=== PATIENT | female | born 1950 | race Caucasian/White ===

== ENCOUNTER → 2016-09-30 | Outpatient (CLI) | payer BC ==
[~2016-09-30] MED LIST: ASPEC81 PO; DTR5 PO; MULT-506 PO; PSYL55.43 PO; WARF2TAB PO
== END | disposition home or self-care (01) ==
LOC: C.RDSM 11:20
PROVIDERS: ATTEND Physical Medicine & Rehabilitation Sports Medicine
DX: M16.0 Bilateral primary osteoarthritis of hip (principal); Z96.641 Presence of right artificial hip joint

== ENCOUNTER → 2017-03-28 | Outpatient (CLI) | payer BC | END | disposition home or self-care (01) | LOC: C.RDSM 09:20 | PROVIDERS: ATTEND Physical Medicine & Rehabilitation Sports Medicine | DX: M16.0 Bilateral primary osteoarthritis of hip (principal); Z96.641 Presence of right artificial hip joint ==

== ENCOUNTER → 2017-08-21 | Outpatient (CLI) | payer BC | END | disposition home or self-care (01) | LOC: C.MAMM 09:58 | PROVIDERS: ATTEND Family Medicine | DX: Z00.00 Encounter for general adult medical examination without abnormal findings (principal); Z78.0 Asymptomatic menopausal state; M85.832 Other specified disorders of bone density and structure, left forearm ==

== ENCOUNTER 2019-01-07 23:18 | Observation (INO) ==
[2019-01-07] MEDS ORDERED: DEXAMETHASONE **PF** INJ 10 MG/ML VIAL IV ONE (23:32)
[2019-01-07] MEDS ORDERED: SODIUM CHLORIDE 0.9% 1000ML 1,000 ML IV SCH (23:45)
[2019-01-07 23:57] LABS: Basophils # (auto) 0.03 K/uL (0-0.2); Basophils % (auto) 0.3 %; Eosinophils # (auto) 0.06 K/uL (0-0.5); Eosinophils % (auto) 0.5 %; Hematocrit (blood only) 41.1 % (37-47); Hemoglobin 13.9 g/dL (12.0-16.0); Immature Granulocytes # (auto) 0.02 K/uL (0.00-0.02); Immature Granulocytes % (auto) 0.2 %; Lymphocytes # (auto) 1.18 K/uL (1.2-3.4); Lymphocytes % (auto) 10.8 %; Mean Corpuscular Hemoglobin 29.8 pg (25-34); Mean Corpuscular Hgb Conc 33.8 g/dL (32-36); Mean Corpuscular Volume 88.2 fL (80-100); Mean Platelet Volume 10.4 fL (7.4-10.4); Monocytes # (auto) 0.86 K/uL (0.11-0.59); Monocytes % (auto) 7.8 %; Neutrophils # (auto) 8.82 K/uL (1.4-6.5); Neutrophils % (auto) 80.4 %; Platelet Count 217 K/uL (130-400); RDW Coefficient of Variation 12.3 % (11.5-14.5); RDW Standard Deviation 39.1 fL (36.4-46.3); Red Blood Count 4.66 M/uL (4.2-5.4); White Blood Count 10.97 K/uL (4.8-10.8)
[2019-01-08 00:14] LABS: Albumin Level 3.3 gm/dl (3.4-5.0); BUN Creatinine Ratio 13.7 (10-20); Creatinine Clr Calc Pharmacy 46.2 ml/min; Est GFR (Non-African American) 50.1; Magnesium 1.8 mg/dl (1.8-2.4)
[2019-01-08 00:25] LABS: Albumin Globulin Ratio 0.7 (0.9-2); Bilirubin,Total 0.8 mg/dl (0.2-1); Globulin 4.6 gm/dl (2.5-4.0); Thyroid Stimulating Hormone 1.91 uIu/ml (0.300-4.500); Total Protein 7.9 gm/dl (6.4-8.2)
[2019-01-08] MEDS ORDERED: HydrALAZINE HCL 20 MG/ML VIAL IV STA (02:11)
--- NOTE | 2019-01-08 02:27 | History & Physical Report ---
Date of Service January 08, 2019 Assessment & Plan (1) Sialadenitis: Ms. Dumont is a 68 year old female with a past medical history of overactive bladder who presents to the emergency department due to a 3-day history of right-sided neck swelling. ED course: 10 mg IV dexamethasone, 10 mg IV hydralazine, 600 mg IV clindamycin, 1 L normal saline -Admit to med/surg with telemetry monitoring -CT of the neck shows " enlarged right submandibular gland with adjacent fat stranding in the submandibular space - sialadenitis secondary to 2 separate obstructing calculi in the right Christopher's duct" -We will consult ENT, already aware -No signs or symptoms of respiratory distress at this time, continue to monitor -Cefuroxime 1.5 g IV every 8 hours and 500 mg IV Flagyl every 8 hours ordered to cover for superimposed infection -LR at 125 mls/hr x1 bag for maintenance fluids given poor oral intake -IV tylenol and toradol ordered prn for pain Hypertension -Patient does not have a history of HTN, but her blood pressure was significantly elevated in the emergency department - to 211/108 -continue to monitor, s/p 10mg IV hydralazine -Recommend outpatient follow-up for BP recheck Overactive bladder -Hold home oxybutynin, as anticholinergics can predispose to salivary gland stones CODE STATUS: Full DVT prophylaxis: SCDs Disposition: Admit to med/surg with telemetry monitoring (2) Hypertension: (3) Overactive bladder: History of Present Illness Chief Complaint: Neck Swelling Primary Care Provider: Tj Izaguirre Ms. Dumont is a 68 year old female with a past medical history of overactive bladder who presents to the emergency department due to a 3-day history of right-sided neck swelling. The patient states that this began on after she woke up from a nap 3 days ago. She reports that both the swelling and pain have progressively worsened over the past 3 days. She saw her primary care provider today, who prescribed her a course of Levaquin. She has been using both hot and cold compresses to treat the swelling, as well as ibuprofen. She reports that the reason she decided to come in today it was because she had difficulty swallowing water with her ibuprofen. She denies any trouble breathing, fever, chills, nausea, or vomiting. She states that she has had a similar episode before, in the spring. She states that it cleared up by itself - she did not seek medical attention, or take antibiotics for this. Past medical history: Overactive bladder Past surgical history: Bilateral hip replacement, kidney donation Medications: Oxybutynin, Metamucil Allergies: Penicillins, sulfa Social history: , non-smoker, no recreational drugs, 1 glass of wine per week Allergies Allergy/AdvReac Type Severity Reaction Status Date / Time Penicillins Allergy Intermediate hives Verified 01/08/19 00:14 Sulfa (Sulfonamide Allergy Intermediate HIVES Verified 01/08/19 00:14 Antibiotics) nickel Allergy Mild RASH Verified 01/08/19 00:14 Home Medications Home Medications Medication Instructions Recorded Confirmed Type [id number]-[id number]-[id number] 1 tab PO DAILY 01/08/19 01/08/19 History [Glucosamine-Chondroitin 3X] ibuprofen [Advil] 400 mg PO DIRECTED PRN 01/08/19 01/08/19 History levofloxacin 500 mg PO DAILY 01/08/19 01/08/19 History multivitamin 1 tab PO DAILY 01/08/19 01/08/19 History oxybutynin chloride [Ditropan XL] 10 mg PO QPM 01/08/19 01/08/19 History psyllium husk (aspartame) 1 packet PO BID 01/08/19 01/08/19 History [Metamucil Fiber Singles] Past Med/Surg History Medical History DJD (degenerative joint disease) of hip Overactive bladder Surgical History H/O partial nephrectomy Family History Other No significant family history Social History Preferred Language: Bulgarian Communication Ability: Effective Technical Mgr Required: No Beliefs That Will Affect Care: None Current Living Situation: Alone Other Information That Helps Us Care for You: No Feels Safe at Home: Yes Safety Concerns: Feels Safe At This Time Smoking Status: Never smoker Hx Alcohol Use: Yes Alcohol type: wine Hx Substance Use: No Review of Systems Constitutional: no fever, no chills and no fatigue Respiratory: no cough, no dyspnea and no wheezing Cardiovascular: no chest pain, no palpitations, no syncope, no edema and no calf pain Gastrointestinal: no abdominal pain, no nausea, no vomiting and no change in bowel habits Genitourinary: no dysuria Integumentary: no rash Physical Exam Constitutional: WD/WN, vitals as above cooperative and comfortable Eyes: PERRL, conjunctivae normal, anicteric sclerae ENMT: external ear and nose normal, oropharynx normal Right-sided submandibular swelling, extending to the anterior aspect of the neck. This is tender to palpation, however is not erythematous or warm to touch. Respiratory: normal respiratory effort, lungs clear to auscultation Cardiovascular: RRR, no murmur, no edema Gastrointestinal (Abdomen): normal bowel sounds, soft, nontender, no hepatosplenomegaly Skin: no rashes, warm and dry Neurologic: 5/5 power in upper and lower extremities, sensation intact Psychiatric: A+Ox3, euthymic affect Results & Data Vital Signs (Past 12 Hours) Vital Signs Temp Pulse Pulse Resp BP BP Pulse Ox 01/08/19 01:48 80 20 211/108 H 94 01/08/19 01:46 81 20 203/107 H 93 01/08/19 01:30 76 23 179/100 H 93 01/08/19 01:05 75 14 180/91 H 92 01/08/19 01:00 81 13 180/91 H 93 01/08/19 00:39 169/79 H 01/08/19 00:30 76 13 94 01/08/19 00:12 84 19 172/114 H 93 01/08/19 00:09 93 H 17 93 01/08/19 00:06 86 19 172/114 H 94 01/07/19 23:21 36.9 C 100 H 20 192/93 H 95 Code Status & VTE Plan VTE Prophylaxis Plan VTE Prophylaxis will be ordered: Yes Supervising Physician Co-Signing Physician Notes Patient was seen and examined by me personally. I reviewed the chart, the order s and discussed the case in detail with Dr. America Giron MD. I read this H&P and agree with its contents to entirety. PG Care Time/CCT Total # of Minutes Spent Total Time Spent with Patient: Total time spent is greater than 50% in coordination of care (as documented) at patient's floor/unit and/or counseling patient: Resident Activity Tracking Resident Involvement: Resident Care Provided Care Provided: Adult Hospital Medicine (1) Hypertension Hypertension type: unspecified Qualified Code(s): I10 - Essential (primary) hypertension
[2019-01-08] MEDS ORDERED: CLINDAMYCIN 600 MG in DEXTROSE 5% 50 ML IV ONE (02:38)
[2019-01-08] MEDS ORDERED: LACTATED RINGER'S 1,000 ML IV SCH (03:32)
[2019-01-08] MEDS ORDERED: ACETAMINOPHEN 1000 MG/100 ML IV IV PRN (03:32)
[2019-01-08] MEDS ORDERED: KETOROLAC TROMETHAMINE 15 MG/ML VIAL IV PRN (03:32)
[2019-01-08] MEDS ORDERED: ONDANSETRON INJ 2 MG/ML 2 ML VIAL IV PRN (03:32)
--- NOTE | 2019-01-08 03:35 | Emergency Department Note ---
Entered by Rm Hyde acting as a scribe for History of Present Illness General Chief complaint: Throat Pain Stated complaint: SWOLLEN LYMPH NOPE IN NECK Source: patient History of Present Illness Onset (ago): day(s) (yesterday) Location: neck Pain Consistency: + constant Maximum Pain Intensity: 5 Exacerbated By: + other (pain) Associated symptoms: + other (Positive for swollen neck, tongue swelling, and difficulty swallowing. Negative for SOB and fever.) The patient is a 68 year old female who presents to the emergency department with complaints of constant neck pain beginning yesterday. The patient states that the right side of her neck is swollen due to a swollen gland. She notes that she had an US done today which showed 2 obstructing tear duct stones. She reports that she was started on a course of levofloxacin which she started today. The patient also complains of tongue swelling and difficulty swallowing. The patient states that she is having difficulty lying flat. She denies any SOB and fever. She notes that she has donated one kidney for transplant. Home Medications Home Medications Medication Instructions Recorded Confirmed Type Metamucil Fiber Singles 1 packet PO BID 01/08/19 01/08/19 History cephalexin 500 mg PO Q6H 7 Days #28 tab 01/08/19 Rx [id number]-asuncion-[id number] 1 tab PO DAILY 01/08/19 01/08/19 History [Glucosamine-Chondroitin 3X] ibuprofen [Advil] 400 mg PO DIRECTED PRN 01/08/19 01/08/19 History multivitamin 1 tab PO DAILY 01/08/19 01/08/19 History Allergies Allergy/AdvReac Type Severity Reaction Status Date / Time Penicillins Allergy Intermediate hives Verified 01/08/19 00:14 Sulfa (Sulfonamide Allergy Intermediate HIVES Verified 01/08/19 00:14 Antibiotics) nickel Allergy Mild RASH Verified 01/08/19 00:14 Past Med/Surg History Medical History DJD (degenerative joint disease) of hip Overactive bladder Surgical History H/O partial nephrectomy Family History Other No significant family history Social History Preferred Language: Afghan Communication Ability: Effective Mortgage Collector Required: No Beliefs That Will Affect Care: None Current Living Situation: Alone Feels Safe at Home: Yes Smoking Status: Never smoker Hx Alcohol Use: Yes Alcohol type: wine Hx Substance Use: No Review of Systems See HPI for pertinent positives & negatives. and A total of 10 systems reviewed and were otherwise negative Physical Exam Vital Signs Vital Signs - 24 hr 01/07/19 23:21 01/08/19 00:06 01/08/19 00:09 Temperature 36.9 C Temperature Source Oral Sepsis Recent Fever Within 48 Hours No Sepsis New/Unexplained Change in Mental Status No Sepsis Action Taken by Nursing No Action Required Pulse Rate 100 H 86 93 H Pulse Rate [Right Finger] Pulse Rate from SpO2 Sensor 86 90 Respiratory Rate 20 19 17 Blood Pressure 192/93 H 172/114 H Blood Pressure [Right Arm] Blood Pressure Mean 126 133 Blood Pressure Mean [Right Arm] Pulse Oximetry 95 94 93 Oxygen Delivery Method Room Air 01/08/19 00:12 01/08/19 00:30 01/08/19 00:39 Temperature Temperature Source Sepsis Recent Fever Within 48 Hours Sepsis New/Unexplained Change in Mental Status Sepsis Action Taken by Nursing Pulse Rate 76 Pulse Rate [Right Finger] 84 Pulse Rate from SpO2 Sensor 77 Respiratory Rate 19 13 Blood Pressure 169/79 H Blood Pressure [Right Arm] 172/114 H Blood Pressure Mean 109 Blood Pressure Mean [Right Arm] 133 Pulse Oximetry 93 94 Oxygen Delivery Method 01/08/19 01:00 01/08/19 01:05 01/08/19 01:30 Temperature Temperature Source Sepsis Recent Fever Within 48 Hours Sepsis New/Unexplained Change in Mental Status Sepsis Action Taken by Nursing Pulse Rate 81 76 Pulse Rate [Right Finger] 75 Pulse Rate from SpO2 Sensor 78 76 Respiratory Rate 13 14 23 Blood Pressure 180/91 H 179/100 H Blood Pressure [Right Arm] 180/91 H Blood Pressure Mean 120 126 Blood Pressure Mean [Right Arm] 120 Pulse Oximetry 93 92 93 Oxygen Delivery Method 01/08/19 01:46 01/08/19 01:48 01/08/19 01:49 Temperature Temperature Source Sepsis Recent Fever Within 48 Hours Sepsis New/Unexplained Change in Mental Status Sepsis Action Taken by Nursing Pulse Rate 81 80 75 Pulse Rate [Right Finger] Pulse Rate from SpO2 Sensor 80 80 74 Respiratory Rate 20 20 22 Blood Pressure 203/107 H 211/108 H Blood Pressure [Right Arm] Blood Pressure Mean 139 142 Blood Pressure Mean [Right Arm] Pulse Oximetry 93 94 96 Oxygen Delivery Method 01/08/19 02:00 01/08/19 02:01 Temperature Temperature Source Sepsis Recent Fever Within 48 Hours Sepsis New/Unexplained Change in Mental Status Sepsis Action Taken by Nursing Pulse Rate 88 84 Pulse Rate [Right Finger] Pulse Rate from SpO2 Sensor 87 83 Respiratory Rate 30 H 31 H Blood Pressure 198/116 H Blood Pressure [Right Arm] Blood Pressure Mean 143 Blood Pressure Mean [Right Arm] Pulse Oximetry 94 94 Oxygen Delivery Method Vital signs reviewed. General: Well-appearing female, in no significant distress. HEENT: No scleral icterus, PERRLA Atraumatic. Significant swelling and induration to the submandibular region right greater than left, minimal swelling to the subglottic region, patient is swallowing her secretions and maintaining her airway. Cardiovascular: Regular rate and rhythm, no extra sounds. Pulmonary: Clear to auscultation bilaterally, normal work of breathing. Abdomen: Soft, nontender, nondistended, positive bowel sounds. Musculoskeletal: Atraumatic, no peripheral edema. Neurologic: Patient awake alert and oriented x 3. Skin: Warm, dry, no rash. Course 2330: The patient was evaluated in room A10. A complete history and physical e xam was performed. 0141: I discussed the patient's case with Dr. Reyes - Otolaryngology. He suggests steroids and antibiotics. He states that the patient will need to have surgery eventually. 0203: Upon reevaluation, the patient is stable. I discussed the findings and the treatment plan with the patient. She expresses agreement and understanding. I spoke with Dr. Sanabria of the [facility] Hospitalist Service. The patient will be evaluated for further management. Consultations Time: 01:41 Consultation #2: I reviewed the patient's case with Dr. Sanabria - [facility], [facility]. He will evaluate the patient for further management. Time: 02:03 Administered Medications Discontinued Medications Acetaminophen (Ofirmev) 1,000 mg IV Q8H PRN PRN Reason: Pain or Fever Stop: 02/07/19 03:31 Last Admin: 01/08/19 04:19 Dose: 1,000 mg Documented by: [id number] Dexamethasone Sodium Phosphate (Decadron Pf) 10 mg IV NOW ONE Stop: 01/07/19 23:33 Last Admin: 01/07/19 23:47 Dose: 10 mg Documented by: [id number] Hydralazine HCl (Hydralazine Hcl) 10 mg IV NOW STA Stop: 01/08/19 02:12 Last Admin: 01/08/19 02:14 Dose: 10 mg Documented by: [id number] Sodium Chloride (Nss 1000ml) 1,000 mls @ 125 mls/hr IV .Q8H SANKET Stop: 01/08/19 07:44 Last Infusion: 01/08/19 03:33 Dose: 0 mls/hr Documented by: [id number] Admin: 01/07/19 23:47 Dose: 125 mls/hr Documented by: [id number] Clindamycin Phosphate 600 mg/ (Dextrose) 54 mls @ 100 mls/hr IV ONE ONE Stop: 01/08/19 03:10 Last Infusion: 01/08/19 03:49 Dose: 0 mls/hr Documented by: [id number] Admin: 01/08/19 03:10 Dose: 100 mls/hr Documented by: [id number] Metronidazole (Flagyl) 500 mg in 100 mls @ 100 mls/hr IV Q8H SANKET Stop: 01/18/19 07:59 Last Infusion: 01/08/19 09:22 Dose: 0 mls/hr Documented by: [id number] Admin: 01/08/19 08:22 Dose: 100 mls/hr Documented by: [id number] Cefuroxime Sodium 1,500 mg/ (Dextrose) 115 mls @ 200 mls/hr IV Q8H SANKET; Protocol Stop: 01/18/19 05:59 Last Infusion: 01/08/19 06:10 Dose: 0 mls/hr Documented by: [id number] Admin: 01/08/19 05:35 Dose: 200 mls/hr Documented by: [id number] Lactated Ringer's (Lr) 1,000 mls @ 125 mls/hr IV .Q8H SANKET Stop: 01/08/19 11:31 Last Infusion: 01/08/19 13:50 Dose: 0 mls/hr Documented by: [id number] Admin: 01/08/19 04:36 Dose: 125 mls/hr Documented by: [id number] Ketorolac Tromethamine (Toradol) 15 mg IV Q6H PRN PRN Reason: Pain Stop: 01/13/19 03:31 Last Admin: 01/08/19 05:37 Dose: 15 mg Documented by: [id number] Lactobacillus Acidophilus (Floranex) 4 tab PO TIDM SANKET Stop: 02/07/19 07:59 Last Admin: 01/08/19 12:43 Dose: 4 tab Documented by: [id number] Admin: 01/08/19 08:23 Dose: 4 tab Documented by: [id number] Morphine Sulfate (Morphine Sulfate) 2 mg IV NOW STA Stop: 01/08/19 06:37 Last Admin: 01/08/19 06:41 Dose: 2 mg Documented by: [id number] Medical Decision Making Differential Diagnosis Differential diagnosis includes etiologies such as robin's angina, sialadenitis, viral syndrome, tonsillitis, streptococcal pharyngitis, mononucleosis, peritonsillar abscess, retropharyngeal abscess, otitis, pneumonia, influenza, as well as others were entertained. Medical Records Attestation: I reviewed the patient's medical records. Home Medications Current Medication List: was personally reviewed by me Laboratory Data Attestation: I reviewed the patient's lab results. Result diagrams: 01/07/19 23:45 01/07/19 23:45 Lab Results 01/07/19 01/07/19 Range/Units 23:45 23:45 WBC 10.97 H (4.8-10.8) K/uL RBC 4.66 (4.2-5.4) M/uL Hgb 13.9 (12.0-16.0) g/dL Hct 41.1 (37-47) % MCV 88.2 (80-100) fL MCH 29.8 (25-34) pg MCHC 33.8 (32-36) g/dL RDW Std Deviation 39.1 (36.4-46.3) fL RDW Coeff of Dana 12.3 (11.5-14.5) % Plt Count 217 (130-400) K/uL MPV 10.4 (7.4-10.4) fL Immature Gran % (Auto) 0.2 % Neut % (Auto) 80.4 % Lymph % (Auto) 10.8 % [place] % (Auto) 7.8 % Eos % (Auto) 0.5 % Baso % (Auto) 0.3 % Immature Gran # (Auto) 0.02 (0.00-0.02) K/uL Neut # (Auto) 8.82 H (1.4-6.5) K/uL Lymph # (Auto) 1.18 L (1.2-3.4) K/uL [place] # (Auto) 0.86 H (0.11-0.59) K/uL Eos # (Auto) 0.06 (0-0.5) K/uL Baso # (Auto) 0.03 (0-0.2) K/uL Sodium 136 (136-145) mmol/L Potassium 4.0 (3.5-5.1) mmol/L Chloride 102 (98-107) mmol/L Carbon Dioxide 27 (21-32) mmol/L Anion Gap 7.0 (3-11) BUN 16 (7-18) mg/dl Creatinine 1.14 (0.6-1.2) mg/dl Est Cr Clr Drug Dosing 46.2 ml/min Est GFR ( Amer) 58.0 Est GFR (Non-Af Amer) 50.1 BUN/Creatinine Ratio 13.7 (10-20) Glucose 125 H (70-99) mg/dl Calcium 9.0 (8.5-10.1) mg/dl Magnesium 1.8 (1.8-2.4) mg/dl Total Bilirubin 0.8 (0.2-1) mg/dl AST 19 (15-37) U/L ALT 32 (12-78) U/L Alkaline Phosphatase 96 (45-117) U/L Total Protein 7.9 (6.4-8.2) gm/dl Albumin 3.3 L (3.4-5.0) gm/dl Globulin 4.6 H (2.5-4.0) gm/dl Albumin/Globulin Ratio 0.7 L (0.9-2) TSH 1.910 (0.300-4.500) uIu/ml Imaging Data Radiologist's Impression: Radiology results as stated below per my review and the radiologist's interpretation: CT NECK: Impression: Enlarged right submandibular gland with adjacent fat stranding in the submandibular space which presumably represents sialadenitis secondary to 2 separate obstructing calculi in the right Whartons duct. While there is inflammation associated with this process, there is soft tissue effacement of the right glossotonsillar sulcus and right piriform sinus which is not well characterized on this examination. An underlying mass lesion is not excluded. Direct visualization is recommended. Patulous esophagus. Heterogenous attenuation in the thyroid gland. Radiologist: Dontrell Lozano MD. Blood Pressure Blood Pressure Findings: Elevated blood pressure Blood Pressure Disposition: further management by hospitalist MDM Narrative This pt was evaluated and appeared to be in no distress. IV access was obtained and lab work was drawn. Pt was placed on the manager of engineering. US results were reviewed, however pt's edema and clinical picture has deteriorated since that time. A CT was performed to consider cellulitis/ drainable collection. Pt was given 10 mg IV decadron with some improvement subjectively. CT reveals 2 stones in [place]'s duct and subsequent sialoadenitis. Case was d.w Dr. Reeys who has suggested antibiotics. IV Clindamycin was given d/t pt's PCN allergy. Pt was advised of the findings and plan. She has remained hypertensive during the stay. After no change with observation, IV hydralazine was ordered. Pt was d/w the hospitalist service for monitoring of HTN and submandibular swelling. Pt is aware of the plan and agrees. Impression & Plan Sialadenitis, Hypertension Discharge Plan Visit Data *Final* Discharge Date/Time: 01/08/19 03:05 Chief Complaint: Throat Pain Stated Complaint: SWOLLEN LYMPH NOPE IN NECK ED Provider: Jannet Singer Discharge Problem: Sialadenitis, Hypertension Patient Disposition: Admitted As Inpatient Discharge Instructions Interventions: ED Discharge Assessment Last Done: 01/08/19 03:05 Discharge Problem: Hypertension Qualifiers: Hypertension type: unspecified Qualified Code(s): I10 - Essential (primary) hypertension The scribe's documentation has been prepared under my direction and personally reviewed by me in its entirety. I confirm that the note above accurately reflects all work, treatment, procedures, and medical decision making performed by me.
[2019-01-08] MEDS ORDERED: cefUROXime 1,500 MG in DEXTROSE 5% 100 ML IV SCH (06:00)
[2019-01-08] MEDS ORDERED: MoRPHine SULFATE 2 MG/ML CARP IV STA (06:36)
--- NOTE | 2019-01-08 07:06 | CT Scan Report ---
CT soft tissue neck wo con CT DOSE: 584.41 mGy.cm CLINICAL HISTORY: ludwigii angina vs sialoadenitis, one kidney neck pain and swelling. TECHNIQUE: Unenhanced images were obtained through the soft tissue neck. A dose lowering technique w as utilized adhering to the principles of ALARA. COMPARISON STUDY: Ultrasound study dated 12/07/2018 FINDINGS: The visualized portions of lung apices are unremarkable. There is a multinodular thyroid gland. There is right submandibular gland edema. Two calculi are visualized within the right submandibular d uct measuring 2 mm and 3 mm respectively. There is secondary facial edema, more pronounced on the rig ht. No parotid abnormalities are visualized. No orbital lesions are visualized. There is no pathologic adenopathy. There is right-sided supraglottic asymmetry with mass effect on the vallecula and piriform sinuses. W hile this could be on an inflammatory basis, a mass could appear similar. ENT consultation for direct visualization is recommended. The examination is limited by the lack of intravenously administered contrast. IMPRESSION: 1. Right submandibular gland sialoadenitis, secondary to two obstructing calculi within the right sub mandibular duct. 2. Right supraglottic mass/edema with effacement of the right piriform sinus. This could be on an inf lammatory or neoplastic basis. ENT consultation for direct visualization is recommended. 3. Multinodular thyroid gland. Electronically signed by: Harshal Rondon M.D. 01/08/2019 7:05 AM
[2019-01-08] MEDS ORDERED: metroNIDAZOLE 500 MG/100 ML BAG IV SCH (08:00)
[2019-01-08] MEDS: LACTOBACILLUS ACIDOPHILUS (FLORANEX) TAB PO SCH ×2 (08:23→12:43)
--- NOTE | 2019-01-08 10:19 | ENT Consultation ---
Date of Consultation January 08, 2019 Assessment & Plan (1) Sialadenitis: The patient states that the swelling has diminished. And that this is her second episode of sialoadenitis the possibility of excision of the right submandibular gland was discussed with the patient. She can be treated with p.o. antibiotics along with sialagogues. She was instructed to call my office for a follow-up appointment. History of Present Illness Reason for Consultation: Right neck swelling Attending Physician: Darvin Matute DO History of Present Illness 68-year-old lady with sudden onset of right neck swelling Friday became worse and was admitted last evening for acute sialoadenitis. She had a similar episode back in August where she spit out a small stone from under her tongue. She does complain of dry mouth due to medication for overactive bladder. Allergies Allergy/AdvReac Type Severity Reaction Status Date / Time Penicillins Allergy Intermediate hives Verified 01/08/19 00:14 Sulfa (Sulfonamide Allergy Intermediate HIVES Verified 01/08/19 00:14 Antibiotics) nickel Allergy Mild RASH Verified 01/08/19 00:14 Home Medications Home Medications Medication Instructions Recorded Confirmed Type [id number]-C-asuncion-bosw 1 tab PO DAILY 01/08/19 01/08/19 History [Glucosamine-Chondroitin 3X] ibuprofen [Advil] 400 mg PO DIRECTED PRN 01/08/19 01/08/19 History levofloxacin 500 mg PO DAILY 01/08/19 01/08/19 History multivitamin 1 tab PO DAILY 01/08/19 01/08/19 History oxybutynin chloride [Ditropan XL] 10 mg PO QPM 01/08/19 01/08/19 History psyllium husk (aspartame) 1 packet PO BID 01/08/19 01/08/19 History [Metamucil Fiber Singles] Patient History Medical History DJD (degenerative joint disease) of hip Overactive bladder Surgical History H/O partial nephrectomy Family History Other No significant family history Social History Preferred Language: Hebrew Communication Ability: 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 Respiratory: normal respiratory effort, lungs clear to auscultation Results & Data Vital Signs (Past 12 Hours) Vital Signs Temp Pulse Pulse Resp BP BP BP 01/08/19 08:56 88 01/08/19 08:23 37.1 C 88 18 114/70 01/08/19 06:18 86 18 164/85 H 01/08/19 03:22 36.6 C 88 18 177/97 H 01/08/19 03:05 87 19 171/97 H 01/08/19 02:30 96 H 17 188/101 H 01/08/19 02:01 84 31 H 198/116 H 01/08/19 02:00 88 30 H 01/08/19 01:49 75 22 01/08/19 01:48 80 20 211/108 H 01/08/19 01:46 81 20 203/107 H 01/08/19 01:30 76 23 179/100 H 01/08/19 01:05 75 14 180/91 H 01/08/19 01:00 81 13 180/91 H 01/08/19 00:39 169/79 H 01/08/19 00:30 76 13 01/08/19 00:12 84 19 172/114 H 01/08/19 00:09 93 H 17 01/08/19 00:06 86 19 172/114 H 01/07/19 23:21 36.9 C 100 H 20 192/93 H Pulse Ox 01/08/19 08:56 01/08/19 08:23 90 01/08/19 06:18 94 01/08/19 03:22 93 01/08/19 03:05 97 01/08/19 02:30 94 01/08/19 02:01 94 01/08/19 02:00 94 01/08/19 01:49 96 01/08/19 01:48 94 01/08/19 01:46 93 01/08/19 01:30 93 01/08/19 01:05 92 01/08/19 01:00 93 01/08/19 00:39 01/08/19 00:30 94 01/08/19 00:12 93 01/08/19 00:09 93 01/08/19 00:06 94 01/07/19 23:21 95
--- NOTE | 2019-01-09 00:37 | Discharge Summary ---
Date of Service January 08, 2019 Admission HPI Per Admitting Provider Ms. Dumont is a 68 year old female with a past medical history of overactive bladder who presents to the emergency department due to a 3-day history of right-sided neck swelling. The patient states that this began on after she woke up from a nap 3 days ago. She reports that both the swelling and pain have progressively worsened over the past 3 days. She saw her primary care provider today, who prescribed her a course of Levaquin. She has been using both hot and cold compresses to treat the swelling, as well as ibuprofen. She reports that the reason she decided to come in today it was because she had difficulty swallowing water with her ibuprofen. She denies any trouble breathing, fever, chills, nausea, or vomiting. She states that she has had a similar episode before, in the spring. She states that it cleared up by itself - she did not seek medical attention, or take antibiotics for this. Past medical history: Overactive bladder Past surgical history: Bilateral hip replacement, kidney donation Medications: Oxybutynin, Metamucil Allergies: Penicillins, sulfa Social history: , non-smoker, no recreational drugs, 1 glass of wine per week Admission Exam Per Admitting Provider Constitutional: WD/WN, vitals as above cooperative and comfortable Eyes: PERRL, conjunctivae normal, anicteric sclerae ENMT: external ear and nose normal, oropharynx normal Right-sided submand ibular swelling, extending to the anterior aspect of the neck. This is tender to palpation, however is not erythematous or warm to touch. Respiratory: normal respiratory effort, lungs clear to auscultation Cardiovascular: RRR, no murmur, no edema Gastrointestinal (Abdomen): normal bowel sounds, soft, nontender, no hepatosplenomegaly Skin: no rashes, warm and dry Neurologic: 5/5 power in upper and lower extremities, sensation intact Psychiatric: A+Ox3, euthymic affect Principal Diagnosis Sialoadenitis Discharge Exam Constitutional: WD/WN, vitals as above cooperative and comfortable Eyes: PERRL, conjunctivae normal, anicteric sclerae ENMT: external ear and nose normal, oropharynx normal Enlarged, tender right submandibular gland. Soft unable to palpate any discrete stones. Respiratory: normal respiratory effort, lungs clear to auscultation Cardiovascular: RRR, no murmur, no edema Gastrointestinal (Abdomen): normal bowel sounds, soft, nontender, no hepatosplenomegaly Skin: no rashes, warm and dry Neurologic: 5/5 power in upper and lower extremities, sensation intact Psychiatric: A+Ox3, euthymic affect Discharge Data Allergies Allergy/AdvReac Type Severity Reaction Status Date / Time Penicillins Allergy Intermediate hives Verified 01/08/19 00:14 Sulfa (Sulfonamide Allergy Intermediate HIVES Verified 01/08/19 00:14 Antibiotics) nickel Allergy Mild RASH Verified 01/08/19 00:14 Consultations 01/08/19 02:14 ED Decision to Admit Stat 01/08/19 03:32 Consult Otolaryngology (Head and Neck) Routine Ordered Studies 01/07/19 23:32 CT soft tissue neck wo con Urgent Hospital Course (1) Sialadenitis: Ms. Dumont is a 68 year old female with a past medical history of overactive bladder who presents to the emergency department due to a 3-day history of right-sided neck swelling. ED course: 10 mg IV dexamethasone, 10 mg IV hydralazine, 600 mg IV clindamycin, 1 L normal saline -Admitted to med/surg -CT of the neck shows " enlarged right submandibular gland with adjacent fat stranding in the submandibular space - sialadenitis secondary to 2 separate obstructing calculi in the right Christopher's duct" Patient initially treated with IV cefuroxime and flagyl ENT consulted recommended outpatient treatment with possible future removal of submandibular gland to prevent future symptoms Will also hold oxybutynin moving forward due to anticholinergic effect predisposing stone formation. Sent patient home on keflex for 7 days also recommended ibuprofen 400 mg TID for seven days as well and sucking on hard sour candy Can discuss myrbetriq and other Overactive bladder treatments with primary care physician on discharge. Patient remained afebrile with stable vital signs throughout. No evidence of purulent drainage from gland Hypertension -Patient does not have a history of HTN, but her blood pressure was significantly elevated in the emergency department - to 211/108 Normalized after one dose of hydralazine -Recommend outpatient follow-up for BP recheck Overactive bladder -Hold home oxybutynin, as anticholinergics can predispose to salivary gland stones May consider myrbetriq Total Time Total Time Spent Total Time Spent (In Minutes): 35 Discharge Plan Discharge Items Patient Disposition: Home - Self-Care Reason For Visit: SIALOADENITIS Discharge Diagnosis: Sialoadenitis Activity: Resume your previous activity Non-emergency contact: Primary Care Provider Call non-emergency contact if: you have any medication questions, your symptoms worsen and you have a fever Follow-up/Referrals: Tj Izaguirre [Primary Care Provider] - Diet: Regular Addtl Attending Provider Instructions: Ms. Dumont, It was our pleasure to evaluate and treat you for your salivary gland stones resulting in your painful and swollen salivary gland. We believe this is at least partially due to your chronic dry mouth from your oxybutynin we will ask you to hold that medication moving forward and discuss other possible options with your urologist. We will be sending you home on cephalexin, an antibiotic that can help if there is any infection from the obstruction. This is to be taken in 500 mg doses 4 times per day for the next week. We recommend following up with Dr. Reyes for an appointment in his office and following up with your primary care physician within the next week or so as well. To help prevent dry mouth we recommend using hard candies and sour candies to increase saliva production. If these, coupled with stopping your oxybutynin are unsuccessful in getting an increased saliva production we recommend seeing your doctor and asking him about medication to help you produce more saliva. Thank you for coming in and we wish you all the best moving forward. Sincerely, Mata Holman MD Pending Studies at Discharge: No Stand-Alone Forms: My [facility] Medications and DC Order Prescriptions: New cephalexin 500 mg tablet 500 mg PO Q6H 7 Days Qty: 28 RF: 0 Continued multivitamin Tablet 1 tab PO DAILY RF: 0 ibuprofen [Advil] 200 mg Tablet 400 mg PO DIRECTED PRN (Reason: Pain) RF: 0 [id number]-C-asuncion-bosw [Glucosamine-Chondroitin 3X] 750-625-30 mg Tablet 1 tab PO DAILY RF: 0 Metamucil Fiber Singles 3.4 gram Powder In Packet 1 packet PO BID RF: 0 Discontinued oxybutynin chloride [Ditropan XL] 10 mg Tablet Extended Release 24hr 10 mg PO QPM RF: 0 levofloxacin 500 mg Tablet 500 mg PO DAILY RF: 0 Discharge Orders: Discharge Order (Routine); Ordered 01/08/19 Ordered By: Mata Holman Admission Data Admit Date/Time: 01/08/19 02:27 Attending Provider: Darvin Matute Admit Provider: America Giron Primary Care Provider: Tj Izaguirre Other Providers: Zane Sanabria ; Susanna Reyes How Other Interventions: Discharge Summary Assessment (RN) Last Done: 01/08/19 14:12 DC Date/Time DO NOT enter until pt leaves facility: 01/08/19 14:25 Supervising Physician Co-Signing Physician Notes I saw the patient with the resident physician and confirmed ferrera portions of the history and exam. She is feeling much better this morning - afebrile, decreased pain, and marked decrease in swelling. She will follow up with ENT as an out patinet. Resident Activity Tracking Resident Involvement: Resident Care Provided Care Provided: Adult Hospital Medicine
== END 2019-01-08 14:25 | disposition home or self-care (01) ==
LOC: 2N 23:18 → ED 23:18 → SUATTDRO 01-08 02:27 → 2N 01-08 03:05
DX: Z88.2 Allergy status to sulfonamides; Z90.5 Acquired absence of kidney; I10 Essential (primary) hypertension; N32.81 Overactive bladder; Z91.048 Other nonmedicinal substance allergy status; R22.1 Localized swelling, mass and lump, neck; K11.20 Sialoadenitis, unspecified; Z96.643 Presence of artificial hip joint, bilateral; Z88.0 Allergy status to penicillin

== ENCOUNTER 2019-09-02 08:26 | Observation (INO) ==
--- NOTE | 2019-09-01 12:55 | Anesthesiology Consultation ---
Date of Service September 01, 2019 Assessment & Plan (1) Encounter for pre-operative examination: Chart Review Chart Review: Acceptable Risk for Surgery and Patient NOT seen in Pre Admission Testing History Surgery Operation Date: 09/02/19 10:00 Proposed Procedures p Right Submandibular Gland Excision - Susanna Reyes MD Height/Weight Height: 5 ft Weight: 81.647 kg Allergies Allergy/AdvReac Type Severity Reaction Status Date / Time Penicillins Allergy Intermediate hives Verified 09/01/19 11:23 Sulfa (Sulfonamide Allergy Intermediate HIVES Verified 09/01/19 11:23 Antibiotics) nickel Allergy Mild RASH Verified 09/01/19 11:23 Medications Home Medications Medication Instructions Recorded Confirmed Last Taken calcium carbonate-vitamin D3 1 tab PO QPM 09/01/19 09/01/19 Unknown [Calcium 500 + D] fluticasone propionate [Flonase 2 spray INTRANASAL DIRECTED PRN 09/01/19 09/01/19 Unknown Allergy Relief] [id number]-C-asuncion-bosw 1 tab PO QPM 09/01/19 09/01/19 Unknown [Glucosamine-Chondroitin 3X] multivitamin 1 tab PO QPM 09/01/19 09/01/19 Unknown naproxen sodium [Aleve] 220 mg PO Q12H PRN 09/01/19 09/01/19 Unknown psyllium husk (aspartame) 3.4 g PO BID 09/01/19 09/01/19 Unknown [Metamucil Fiber Singles] Past Medical History Medical History (Updated 09/01/19 @ 12:57 by Berenice Newman PA-C) Diverticular disease DJD (degenerative joint disease) of hip History of small bowel obstruction Nausea and vomiting after administration of anesthetic agent Overactive bladder Past Family History Family History Other No significant family history Past Surgical History Surgical History History of colectomy MULTIPLE History of colostomy History of colostomy reversal History of herniorrhaphy INCISIONAL History of tonsillectomy History of tooth extraction WISDOM History of total hip arthroplasty BILATERAL Status post nephrectomy LEFT (PT DONOR) Social History Smoking Status: Never smoker Do You Dip or Chew Tobacco: No Hx Alcohol Use: Yes Alcohol type: beer and wine alcohol intake frequency: holidays/special occasions only Hx Substance Use: No substance use type: does not use Testing Laboratory Results Laboratory Tests 09/01/19 09/01/19 11:29 11:29 WBC 6.21 Hgb 12.2 Hct 37.5 Plt Count 288 Sodium 137 Potassium 4.2 Chloride 106 Carbon Dioxide 28 BUN 17 Creatinine 0.94 Glucose 110 H Electrocardiogram Date: 09/01/19 Findings: + NSR @ (81) and + no change from (Apr 10, 2015)
--- NOTE | 2019-09-01 15:34 | History & Physical Report ---
Date of Service September 01, 2019 Assessment & Plan (1) Sialadenitis: Due to the severity of the swelling and her symptoms of airway difficulty Friday and the possibility of abscess formation leading to Ludewig's angina prompt excision of the submandibular gland is indicated. The procedure will be excision of the right submandibular gland. The risk of nerve injury and bleeding and infection were explained at length to the patient who understands that her risk is higher due to the severity of the sialoadenitis. Admission and Anticipated Discharge Date Admission Date: Sialoadenitis History of Present Illness Chief Complaint: Acute right submandibular sialoadenitis Primary Care Provider: Tj Izaguirre 69-year-old lady with recurrent episodes of sialoadenitis of the submandibular gland on the right side since December when she was hospitalized here. She had another recurrence and saw me in February when I recommended surgery but did not desire it at that time. I had a telemedicine visit with her on August 15 when she again noticed swelling and symptoms and was treated with antibiotics but continued to progress in severity and swelling to the point where she was unable to swallow even liquids on Friday. That evening she noted the stone came out however the swelling in the submandibular area persisted along with pain and discomfort. Because of the impending abscess and possible airway complication if she develops an abscess excision is felt to be indicated. Allergies Allergy/AdvReac Type Severity Reaction Status Date / Time Penicillins Allergy Intermediate hives Verified 09/01/19 11:23 Sulfa (Sulfonamide Allergy Intermediate HIVES Verified 09/01/19 11:23 Antibiotics) nickel Allergy Mild RASH Verified 09/01/19 11:23 Home Medications Home Medications Medication Instructions Recorded Confirmed Type calcium carbonate-vitamin D3 1 tab PO QPM 09/01/19 09/01/19 History [Calcium 500 + D] fluticasone propionate [Flonase 2 spray INTRANASAL DIRECTED PRN 09/01/19 09/01/19 History Allergy Relief] [id number]-C-asuncion-bosw 1 tab PO QPM 09/01/19 09/01/19 History [Glucosamine-Chondroitin 3X] multivitamin 1 tab PO QPM 09/01/19 09/01/19 History naproxen sodium [Aleve] 220 mg PO Q12H PRN 09/01/19 09/01/19 History psyllium husk (aspartame) 3.4 g PO BID 09/01/19 09/01/19 History [Metamucil Fiber Singles] Past Med/Surg History Medical History Diverticular disease DJD (degenerative joint disease) of hip History of small bowel obstruction Overactive bladder Surgical History History of colectomy MULTIPLE History of colostomy History of colostomy reversal History of herniorrhaphy INCISIONAL History of tonsillectomy History of tooth extraction WISDOM History of total hip arthroplasty BILATERAL Nausea and vomiting after administration of anesthetic agent Status post nephrectomy LEFT (PT DONOR) Family History Other No significant family history Social History Preferred Language: Telugu Communication Ability: Effective 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 Beliefs That Will Affect Care: None Current Living Situation: Family Feels Safe at Home: Yes Smoking Status: Never smoker Hx Alcohol Use: Yes Alcohol type: beer and wine Hx Substance Use: No Physical Exam Constitutional: WD/WN, vitals as above Eyes: PERRL, conjunctivae normal, anicteric sclerae ENMT: external ear and nose normal, oropharynx normal Neck: 5 cm firm tender right submandibular mass palpable bimanually Respiratory: normal respiratory effort, lungs clear to auscultation Cardiovascular: RRR, no murmur, no edema Gastrointestinal (Abdomen): normal bowel sounds, soft, nontender, no hepatosplenomegaly
[~2019-09-02 08:26] MED LIST changes: -ASPEC81 PO; +CEFAZOLIN 2000MG 2,000 MG/15 ML SYR IV SCH; +CLINDAMYCIN 600 MG/54 ML BAG IV SCH; -DTR5 PO; +LR 15ML/HR IV SCH; -MULT-506 PO; -PSYL55.43 PO; -WARF2TAB PO
--- NOTE | 2019-09-02 10:26 | History & Physical Bridge Note ---
Date of Service September 02, 2019 History & Physical Bridge Note I have examined the patient, reviewed the History & Physical and in the interval since the performance of the History & Physical I have noted the following changes of clinical significance: no changes noted
[2019-09-02] MEDS ORDERED: LIDOCAINE/EPINE 2% 1:100,000 20ML ONE (10:54)
[2019-09-02] MEDS ORDERED: DEXAMETHASONE SOD INJ 4 MG/ML VIAL ONE (11:06)
[2019-09-02] MEDS ORDERED: PROPOFOL IV EMULSION 10 MG/ML 20 ML VIAL IV ONE (11:06)
[2019-09-02] MEDS ORDERED: ONDANSETRON INJ 2 MG/ML 2 ML VIAL ONE (11:06)
[2019-09-02] MEDS ORDERED: fentaNYL citrate 100 MCG/2 ML VIAL ONE ×2 (11:06→13:32)
[2019-09-02] MEDS ORDERED: MIDAZOLAM HCL 1 MG/ML 2ML VIAL ONE (11:06)
[2019-09-02] MEDS ORDERED: ROCURONIUM BROMIDE 10 MG/ML 5 ML VIAL ONE (11:06)
[2019-09-02] MEDS ORDERED: LIDOCAINE HCL 2% 2 ML VIAL/AMP(20MG/ML) INFIL ONE (11:06)
[2019-09-02] MEDS ORDERED: ePHEDrine sulfate 50 MG/ML AMP IV PRN (11:43)
[2019-09-02] MEDS ORDERED: ATROPINE SULFATE 0.1 MG/ML 10ML SYR IV PRN (11:43)
[2019-09-02] MEDS ORDERED: ONDANSETRON INJ 2 MG/ML 2 ML VIAL IV PRN ×2 (11:43→13:32)
[2019-09-02] MEDS ORDERED: fentaNYL citrate 100 MCG/2 ML VIAL IV PRN (11:43)
[2019-09-02] MEDS ORDERED: GLYCOPYRROLATE 0.2 MG/ML VIAL ONE (13:08)
[2019-09-02] MEDS ORDERED: NEOSTIGMINE METHYLSULFATE 5 MG/5 ML SYR ONE (13:08)
[2019-09-02] MEDS ORDERED: CONVERT TO SALINE LOCK PRN (13:32)
--- NOTE | 2019-09-02 13:40 | Operative Report ---
Post Operative Report Pre & Post Diagnosis Operation Date: 09/02/19 10:00 Pre-Op Diagnosis: Sialoadenitis Post-Op Diagnosis: Sialoadenitis I identified the patient and participated in the time-out.: Yes Procedure Operation Date: 09/02/19 10:00 Actual Procedures p Right Submandibular Gland Excision(Not Applicable) - Susanna Reyes MD Surgeon Susanna Reyes MD Remote Sensing Specialist None Estimated Blood Loss 50 Findings Consistent with Post-Op Diagnosis Specimens Right submandibular gland Anesthesia Type General Complications none Disposition Accompanied Patient To Recovery: Yes Disposition: Recovery Room Indications 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 The incision was 2 fingerbreadths below the angle of the mandible and was injected with 2% Xylocaine with 1 20,000 strength epinephrine. Incision was made using #15 blade carried down through the skin, subcutaneous layer, and platysma layer. Blunt sharp dissection was performed around the gland with the Metzenbaum scissors and also with the harmonic scalpel finding much scar tissue, finding the facial artery as it enters the gland posteriorly and exiting the gland anterior superiorly and also finding the posterior facial vein posterior to the gland and clamping the branch to the gland. The artery was clamped divided and tied with silk ties at both entry and exit from the gland. Continue dissection was performed down to the digastric tendon and then superiorly to the mylohyoid muscle finding significant amount of scar tissue therefore hugging the gland with the harmonic scalpel and excising the entire gland. Hemostasis was controlled using the harmonic scalpel. [place] drain was placed in the depth of the wound. Incision was closed with 4-0 Vicryl sutures on the platysma layer and 4-0 Vicryl sutures on the subcutaneous layer. Skin was closed with 4-0 nylon sutures and the drain was sewn in place. She tolerated the procedure well was taken recovery area in satisfactory condition. I attest to the content of the Intraoperative Record and any orders documented therein. Any exceptions are noted below.
[2019-09-02] MEDS ORDERED: SUCCINYLCHOLINE CHLORIDE 20 MG/ML 10 ML VIAL ONE (13:58)
--- NOTE | 2019-09-02 14:17 | Anesthesiology Progress Note ---
Date of Service September 02, 2019 Anesthesia Post Procedure Vital Signs Vital Signs: Temp Pulse Pulse Resp BP Pulse Ox 09/02/19 14:05 36.5 C 61 16 158/77 H 95 09/02/19 13:55 70 13 151/92 H 94 09/02/19 13:45 36.6 C 65 18 165/85 H 96 09/02/19 09:10 36.9 C 87 18 173/101 H 97 Transfer of Care Handoff Completed per policy Notes Mental Status: alert / awake / arousable Patient Amnestic to Procedure: Yes Nausea / Vomiting: adequately controlled Pain: adequately controlled Airway Patency, RR, SpO2: stable & adequate BP & HR: stable & adequate Hydration State: stable & adequate Anesthetic Complications: no major complications apparent
[2019-09-02] MEDS ORDERED: LACTATED RINGER'S 1,000 ML IV SCH (15:00)
[2019-09-02] MEDS ORDERED: ACETAMINOPHEN 325 MG TAB PO PRN (15:31)
[2019-09-02] MEDS: OXYCODONE/ACETAMINOPHEN 5mg/325mg TAB PO PRN (15:36)
[2019-09-03] MEDS: OXYCODONE/ACETAMINOPHEN 5mg/325mg TAB PO PRN (01:48)
--- NOTE | 2019-09-03 12:11 | Discharge Summary ---
Date of Service September 03, 2019 Admission HPI Per Admitting Provider 69-year-old lady with recurrent episodes of sialoadenitis of the submandibular gland on the right side since December when she was hospitalized here. She had another recurrence and saw me in February when I recommended surgery but did not desire it at that time. I had a telemedicine visit with her on August 15 when she again noticed swelling and symptoms and was treated with antibiotics but continued to progress in severity and swelling to the point where she was unable to swallow even liquids on Friday. That evening she noted the stone came out however the swelling in the submandibular area persisted along with pain and discomfort. Because of the impending abscess and possible airway complication if she develops an abscess excision is felt to be indicated. Admission Exam (Per Admitting) Constitutional WD/WN, vitals as above Eyes PERRL, conjunctivae normal, anicteric sclerae ENMT external ear and nose normal, oropharynx normal Respiratory normal respiratory effort, lungs clear to auscultation Cardiovascular RRR, no murmur, no edema Gastrointestinal (Abdomen) normal bowel sounds, soft, nontender, no hepatosplenomegaly Discharge Data Procedures Performed Operation Date: 09/02/19 10:00 Actual Procedures p Right Submandibular Gland Excision(Not Applicable) - Susanna Reyes MD Hospital Course (1) Sialadenitis: Due to the severity of the swelling and her symptoms of airway difficulty Friday and the possibility of abscess formation leading to Ludewig's angina prompt excision of the submandibular gland is indicated. The procedure will be excision of the right submandibular gland. The risk of nerve injury and bleeding and infection were explained at length to the patient who understands that her risk is higher due to the severity of the sialoadenPostop day 1 the patient did very well with minimal swelling is able to move her tongue in intact marginal mandibular nerve and able to taste. There was minimal swelling of the neck and the drain was in place. She is being discharged home with the drain in place to return to my office on Friday for removal of the drain
== END 2019-09-03 14:30 | disposition home or self-care (01) ==
LOC: ASU 08:26 → 3E 08:26